=== PATIENT | female | born 1995 | race Caucasian/White ===

== ENCOUNTER 2018-09-05 22:07 | Outpatient (CLI) | payer OTHER, SELFPAY ==
[2018-09-05 22:17] VITALS: BMI 24.0
[2018-09-05 22:27] LABS: Microscopic, Urine URINE MICROSCOPIC (MICROSCOPIC)
[2018-09-05 22:34] LABS: Appearance,Urine SL CLOUDY (Clear); Bilirubin,Urine Negative (Negative); Blood, Urine Negative (Negative); Color,Urine YELLOW (Yellow); Glucose,Urine (UA) Negative (Negative); Ketones,Urine Negative (Negative); Leukocyte Esterase,Urine 1+ (Negative); Nitrate,Urine Negative (Negative); Protein,Urine TRACE (Negative)
[2018-09-05 22:40] LABS: Amphetamine/Metha Screen,Urine Negative ng/mL (<1000); Barbiturates Screen,Urine Negative ng/mL (<200); Benzodiazepines Screen,Urine Negative ng/mL (<200); Cannabinoid Screen,Urine Negative ng/mL (<50); Cocaine Screen,Urine Negative ng/mL (<300); Methadone Screen,Urine Negative ng/mL (<300); Opiate Screen,Urine Negative ng/mL (<300); Phencyclidine Screen,Urine Negative ng/mL (<25)
[2018-09-05 22:43] LABS: Amorphous Sediment,Urine 2+ /lpf; WBC,Urine 20-50 #/hpf (0-3)
[2018-09-05 23:00] VITALS: BP 118/62; PULSE 95; RESP 18; TEMP 36.3; O2SAT 97; BMI 24.0
== END 2018-09-06 00:40 | disposition home or self-care (01) ==
LOC: OBOUT 22:10 → OB 22:11
PROVIDERS: Visit Provider Obstetrics & Gynecology
DX: O47.03 False labor before 37 completed weeks of gestation, third trimester (principal); Z3A.36 36 weeks gestation of pregnancy
CPT/HCPCS: 59025; 80305; 81001; 87086; 96360; 96372